=== PATIENT | male | born 1990 | race American Indian/Alaskan Native ===

== ENCOUNTER 2016-09-05 11:43 | Emergency (ER) | payer SELFPAY ==
--- NOTE | 2016-09-05 12:21 | Emergency Department Report ---
Chief Complaint: Abdominal Pain Stated Complaint: BACK PAIN/BLOOD IN URINE Time Seen by Provider: 09/05/16 12:05 - HPI History of Present Illness: Patient is a 26-year-old male who presents to ED complaining of left-sided flank pain and blood in his urine times couple of days. Patient states 3 days ago decided having pain on his left flank area he describes them as throbbing and sharp intermittent in nature at first. Patient states pain began constant describes it is nonradiating ,10 out of 10 intensity today. Patient states earlier this morning he noticed that his urine was dark brown reddish color. Patient states difficulty sitting and getting up. Patient denies fevers/chills/nausea/vomiting/diarrhea/constipation/S of breath/ chest pain/testicular or scrotal pain. - ROS Review of Systems: As noted in HPI - Exam Vital Signs: Vital Signs 09/05/16 11:44 Temperature 98.5 F Pulse Rate 86 Respiratory 16 Rate Blood Pressure 116/67 O2 Sat by Pulse 99 Oximetry Physical Exam: GENERAL: Alert and oriented x3, no apparent distress, Normal Gait, atraumatic. LUNGS: Symetrical with respiration, No wheezing, no rales or crackles, CTAB. HEART: S1, S2 present, regular rate and rhythm without murmur, no rubs, no gallops. ABDOMEN: No organomegaly was noted,Positive bowel sounds, soft, and non- distended. . Nontender to palpation on all Quadrants, left sided CVA tenderness. UROGENITAL: No scrotal mass, Scrotum non tender to palpation bilaterally, no hernia, no scars or penile discharge. SKIN: Warm and dry, No lesions, No ulceration or induration present. MSE screening note: Focused history and physical exam performed. Due to findings the following was ordered: ED Medical Decision Making - Medical Decision Making CBC, BMP, UA ordered. Awaiting results. CT abdomen and pelvis ordered. Patient awaiting to be seen. If CT scan and labs come back within normal limits patient can be seen over at [facility]. - Differential Diagnosis STD, kidney stone, urethritis ED Disposition for MSE Condition: Stable
[2016-09-05 12:42] LABS: Bacteria,Urine 1+ /HPF (Negative); Bilirubin,Urine NEG (Negative); Blood,Urine SM (Negative); Ketones,Urine NEG (Negative); Leukocyte Esterase,Urine LG (Negative); Mucus,Urine FEW /HPF; Nitrite,Urine NEG (Negative); Urobilinogen,Urine < 2.0 mg/dL (<2.0)
--- NOTE | 2016-09-05 13:03 | Cat Scan Report ---
CT scan of abdomen and pelvis without IV contrast: History: Abdominal and flank pain. Blood in urine. Findings: Normal lung bases. No pleural or pericardial effusion. Normal liver and pancreas and gallbladder. Normal adrenals. No calculi kidneys ureter and bladder. No hydronephrosis.Normal prostate. No free intraperitoneal fluid or air. No evidence of adenopathy. Grossly normal abdominal aorta. Large volume stool throughout colon. No evidence of appendicitis or diverticulitis. Impression: No renal or bladder abnormality. Large volume stool in colon.
[2016-09-05 13:16] LABS: Basophils % (Auto) 0.4 % (0.0-1.8); Eosinophils % (Auto) 0.7 % (0.0-4.3); Hematocrit 46.9 % (35.5-45.6); Hemoglobin 15.3 gm/dl (11.8-15.2); Mean Corpuscular HGB Conc 33 % (32-34); Mean Corpuscular Hemoglobin 29 pg (28-32); Mean Corpuscular Volume 87 fl (84-94); Platelet Count 229 K/mm3 (140-440); Red Blood Count 5.38 M/mm3 (3.65-5.03); Red Cell Distribution Width 13.2 % (13.2-15.2); White Blood Count 13.3 K/mm3 (4.5-11.0)
[2016-09-05 13:31] LABS: Anion Gap 15 mmol/L; Blood Urea Nitrogen 9 mg/dL (9-20); Calcium 9.4 mg/dL (8.4-10.2); Carbon Dioxide 29 mmol/L (22-30); Chloride 96.5 mmol/L (98-107); Glucose 78 mg/dL (75-100); Sodium 136 mmol/L (137-145)
[2016-09-05] MEDS ORDERED: ROCEPHIN/NS 1 GM/50 ML 50 ML IV ONE (17:46)
[2016-09-05] MEDS ORDERED: TORADOL IV ONE (17:46)
[2016-09-05 17:51] VITALS: BP 125/78
--- NOTE | 2016-09-05 18:47 | Emergency Department Report ---
HPI - General Chief Complaint: Abdominal Pain Time Seen by Provider: 09/05/16 17:44 - HPI HPI: Chief complaint: Flank pain and dysuria HPI: Patient is a 26-year-old male states she's been having left flank pain 2- 3 days and noticing some blood in his urine. Patient denies fever does have some dysuria. Patient denies nausea, vomiting or diarrhea and she denies previous kidney stone or penile discharge. Mode of arrival: private car Source: Patient Began: 2-3 days Duration: 2-3 days Context: See above Quality: Dull steady Severity: 10 out of 10 Improved with: Nothing Worsened with: Nothing Associated signs and symptoms: See above ED Past Medical Hx - Past Medical History Previous Medical History?: Yes Hx Seizures: Yes - Social History Smoking Status: Never Smoker Substance Use Type: None - Medications Home Medications: Home Medications Medication Instructions Recorded Confirmed Last Taken Type Ibuprofen [Motrin 800 MG tab] 800 mg PO TID PRN #21 tablet 08/03/16 Unknown Rx Ciprofloxacin HCl [Ciprofloxacin 500 mg PO Q12H #20 tab 09/05/16 Unknown Rx TAB] traMADol [Ultram 50 MG tab] 50 mg PO Q6HR PRN #20 tablet 09/05/16 Unknown Rx ED Review of Systems ROS: Stated complaint: BACK PAIN/BLOOD IN URINE Other details as noted in HPI ROS Constitutional: No fever ENT: No uri symptoms Cardiovascular: No chest pain Respiratory: No sob or cough GI: No nausea vomiting or diarrhea : See HPI Skin: No rash Neuro: No focal weakness or numbness Psych: No depression Mateo/lymph: No edema Physical Exam - Physical Exam Vital Signs: Vital Signs 09/05/16 09/05/16 09/05/16 11:44 17:50 18:05 Temperature 98.5 F 98.8 F Pulse Rate 86 82 Respiratory 16 16 16 Rate Blood Pressure 116/67 Blood Pressure 125/78 [Left] O2 Sat by Pulse 99 100 Oximetry Physical Exam: GENERAL: The patient is well-developed well-nourished . HEENT: Normocephalic. Atraumatic. Extraocular motions are intact. Patient has moist mucous membranes. NECK: Supple. No meningitic signs are noted. There is no adenopathy noted. CHEST/LUNGS: Clear to auscultation. There is no respiratory distress noted. HEART/CARDIOVASCULAR: Regular. There is no tachycardia. There is no gallop rub or murmur. ABDOMEN: Abdomen is soft, nontender. Patient has normal bowel sounds. There is no abdominal distention. Mild bilateral flank tenderness. SKIN: There is no rash. There is no edema. There is no diaphoresis. NEURO: The patient is awake, alert, and oriented. The patient is cooperative. The patient has no focal neurologic deficits. The patient has normal speech. MUSCULOSKELETAL: There is no tenderness or deformity. There is no limitation range of motion. There is no evidence of acute injury. ED Course Vital Signs 09/05/16 09/05/16 09/05/16 11:44 17:50 18:05 Temperature 98.5 F 98.8 F Pulse Rate 86 82 Respiratory 16 16 16 Rate Blood Pressure 116/67 Blood Pressure 125/78 [Left] O2 Sat by Pulse 99 100 Oximetry - Reevaluation(s) Reevaluation #1: 09/05/16 18:49 Patient given 1 g of IV Rocephin, 1 L of normal saline 30 mg of IV Toradol and will be referred back to a urologist and primary care doctor ED Medical Decision Making - Lab Data Result diagrams: 09/05/16 13:01 09/05/16 13:01 Laboratory Tests 09/05/16 12:26 Ur Leukocyte Esterase Lg Urine WBC (Auto) 140.0 H Urine RBC (Auto) 7.0 Urine Bacteria (Auto) 1+ - Radiology Data Radiology results: report reviewed (CT abdomen) Critical care attestation.: If time is entered above; I have spent that time in minutes in the direct care of this critically ill patient, excluding procedure time. ED Disposition Clinical Impression: CT abdomen been normal limits. Urinary tract infection Qualifiers: Urinary tract infection type: site unspecified Hematuria presence: with hematuria Qualified Code(s): N39.0 - Urinary tract infection, site not specified ; R31.9 - Hematuria, unspecified Disposition: DISCHARGED TO HOME OR SELFCARE Is pt being admited?: No Does the pt Need Aspirin: No Condition: Stable Instructions: Urinary Tract Infection in Men (ED) Prescriptions: Ciprofloxacin HCl [Ciprofloxacin TAB] 500 mg PO Q12H #20 tab traMADol [Ultram 50 MG tab] 50 mg PO Q6HR PRN #20 tablet PRN Reason: Pain Referrals: PRIMARY CARE, [Primary Care Provider] - 3-5 Days PRINCE GARCIA JR, MD [Staff Physician] - 7-10 days (Dr. Garcia is a primary care doctor for you to follow up with.) GRICELDA JORDAN MD [Staff Physician] - 7-10 days (Dr. Jordan is a urologist free to follow-up with) [facility] [Provider Group] - 7-10 days ([facility] sees patients on a sliding scale based on their income.) Time of Disposition: 18:44
== END 2016-09-05 19:05 | disposition home or self-care (01) ==
LOC: ED 11:43
DX: N39.0 Urinary tract infection, site not specified (principal); R10.9 Unspecified abdominal pain; R56.9 Unspecified convulsions
CPT/HCPCS: 36415; 74176; 80048; 81001; 85025; 96365; 96375; 99284; J0696; J1885